=== PATIENT | female | born 1975 | race African-American/Black ===

== ENCOUNTER 2017-04-30 15:57 | Emergency (ER) | payer OTHER ==
[~2017-04-30] VITALS: Ht 149.9 cm; Wt 111.6 kg
[~2017-04-30 15:57] MED LIST: IBUP200T77 PO
[2017-04-30 16:15] VITALS: BP 121/70
[2017-04-30] MEDS ORDERED: DEXA0.5E2 RIGHT EAR (16:41)
[2017-04-30] MEDS ORDERED: CIPR2.5D RIGHT EAR (16:41)
[2017-04-30] MEDS ORDERED: oxyCODONE/APAP 5/325 1 TAB TABLET PO ONE (16:45)
[2017-04-30] MEDS ORDERED: NAPROXEN 250 MG TABLET PO ONE (16:45)
[2017-04-30] MEDS ORDERED: HYDROcodone/APAP 5/325MG 1 TAB TABLET PO ONE (17:15)
--- NOTE | 2017-04-30 17:43 | ED.ADGEN ---
Past Medical History Past Medical History: Cancer, Hypertension, Other Additional Past Medical Histor: myelofibrosis, DDD Past Surgical History: Cholecystectomy, Alcohol Use: Occasionally Drug Use: None Adult General Chief Complaint Chief Complaint: EARACHE/EAR PAIN HPI HPI Patient is a 41 year old woman, history of mild fibrosis, has not received chemotherapy your transplant, who follows with oncology, who presents to the emergency department with a complaint of right ear pain 4 days. Patient denies any fevers, any chills, any jaw or neck pain, any difficulty with swallowing, breathing, sore throat, rhinorrhea, headache, numbness, weakness, tingling, chest pain. She states she has tried [id number] medications without relief. She states the pain is in gradually worsening. In eyes any drainage from the ear, any injuries. Patient did go swimming about 5 days ago, before symptoms started, she states that her sister was going with her at the pool is currently being treated for bilateral otitis externa. No history of diabetes mellitus, no evidence of immunocompromise state. Review of Systems Review of Systems Constitutional: Denies fever or chills. [] Eyes: Denies change in visual acuity. [] HENT: Denies nasal congestion or sore throat. [] Pain in the right ear 4 days. Respiratory: Denies cough or shortness of breath. [] Cardiovascular: Denies chest pain or edema. [] GI: Denies abdominal pain, nausea, vomiting, bloody stools or diarrhea. [] : Denies dysuria. [] Musculoskeletal: Denies back pain or joint pain. [] Integument: Denies rash. [] Neurologic: Denies headache, focal weakness or sensory changes. [] Endocrine: Denies polyuria or polydipsia. [] Lymphatic: Denies swollen glands. [] Psychiatric: Denies depression or anxiety. [] Current Medications Current Medications Current Medications Medications (Trade) Dose Ordered Sig/Ariel Start Time Stop Time Status Last Admin Dose Admin Acetaminophen/ Hydrocodone Bitart (Lortab 5/325) 1 tab 1X ONCE 04/30/17 17:15 04/30/17 17:15 DC 04/30/17 16:59 1 TAB Naproxen (Naprosyn) 250 mg 1X ONCE 04/30/17 16:45 04/30/17 16:46 DC 04/30/17 16:47 250 MG Oxycodone/ Acetaminophen (Percocet 5/325) 1 tab 1X ONCE 04/30/17 16:45 04/30/17 16:46 DC Allergies Allergies Allergies Coded Allergies Type Severity Reaction Last Updated Verified No Known Drug Allergies 09/28/14 No Physical Exam Physical Exam Constitutional: Well developed, well nourished, no acute distress, non-toxic appearance. [] HENT: Normocephalic, atraumatic, bilateral external ears normal, oropharynx moist, no oral exudates, nose normal. Patient with no mastoid tenderness, does have tenderness with motion of the tragus that is mild, examination reveals erythema and swelling of the canal, without evidence of discharge or drainage, with a small amount of cerumen, no evidence of abnormality's of the tympanic membranes is visualized. Patient's left TM and ear canal are normal with a small amount of cerumen noted. Eyes: PERRLA, EOMI, conjunctiva normal, no discharge. [] Neck: Normal range of motion, no tenderness, supple, no stridor. [] Cardiovascular:Heart rate regular rhythm, no murmur, S1, S2, rubs or gallops. [] Lungs & Thorax: Bilateral breath sounds clear to auscultation, no wheezing, rhonchi, rales. Initial crepitus or tenderness. [] Abdomen: Bowel sounds normal, soft, no tenderness, no rebound, rigidity, no guarding, no masses, no pulsatile masses. [] Skin: Warm, dry, no erythema, no rash. [] Neurologic: Alert and oriented X 3, normal motor function, normal sensory function, no focal deficits noted. [] Psychologic: Affect normal, judgement normal, mood normal. [] Current Patient Data Vital Signs Vital Signs Date Time Temp Pulse Resp B/P (MAP) Pulse Ox O2 Delivery O2 Flow Rate FiO2 04/30/17 16:59 18 99 Room Air 04/30/17 16:15 98.1 82 98.1 EKG EKG Not indicated. [] Radiology/Procedures Radiology/Procedures Not indicated. [] Course & Med Decision Making Course & Med Decision Making Pertinent Labs and Imaging studies reviewed. (See chart for details) Patient's examination and history is consistent with otitis externa, no evidence of malignant otitis externa based on patient's history and examination. We will treat with topical ciprofloxacin and dexamethasone, due to cost, patient was prescribed optic medications to be used to the otic route. I did discuss this with pharmacy, prior to writing the prescriptions to confirm proper composition. Discussed use of oral medications for additional discomfort , also discussed concerning symptoms that should prompt return, importance of follow-up with her primary care provider and oncologist. Patient voiced understanding and agreement with plan as stated, discharged home with family in stable condition with plan as above. Dragon Disclaimer Dragon Disclaimer This electronic medical record was generated, in whole or in part, using a voice recognition dictation system. Departure Impression: Primary Impression: Otitis externa of right ear Disposition: HOME, SELF-CARE Condition: IMPROVED Scripts Dexamethasone (DEXAMETHASONE) 0.5 Mg/5 Ml Elixir 3 DROP RIGHT EAR BID for 7 Days, #10 ML Prov: CYNDY CARBAJAL DO 04/30/17 Ciprofloxacin Hcl (CIPROFLOXACIN HCL) 2.5 Ml Drops 3 DROP RIGHT EAR BID for 7 Days, #10 ML Prov: CYNDY CARBAJAL DO 04/30/17 CYNDY CARBAJAL DO Apr 30, 2017 17:42
== END 2017-04-30 17:12 | disposition home or self-care (01) ==
LOC: ER 15:57
DX: H60.91 Unspecified otitis externa, right ear (principal); I10 Essential (primary) hypertension; D75.81 Myelofibrosis; Z90.49 Acquired absence of other specified parts of digestive tract
CPT/HCPCS: 99283

== ENCOUNTER 2017-05-05 17:34 | Emergency (ER) | payer OTHER ==
[~2017-05-05 17:34] MED LIST changes: +CIPR2.5D RIGHT EAR; +DEXA0.5E2 RIGHT EAR
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
[2017-05-05] MEDS ORDERED: HYDROcodone/APAP 5/325MG 1 TAB TABLET PO ONE (19:15)
[2017-05-05] MEDS ORDERED: HYDR-971 PO (19:17)
[2017-05-05 19:40] VITALS: BP 135/88
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
== END 2017-05-05 19:47 | disposition home or self-care (01) ==
LOC: ER 17:34
DX: S83.91XA Sprain of unspecified site of right knee, initial encounter (principal); S93.401A Sprain of unspecified ligament of right ankle, initial encounter; I10 Essential (primary) hypertension; V43.62XA Car passenger injured in collision with other type car in traffic accident, initial encounter; Y93.89 Activity, other specified; Y92.410 Unspecified street and highway as the place of occurrence of the external cause; Y99.8 Other external cause status
CPT/HCPCS: 73562; 73590; 73610; 99284

== ENCOUNTER 2017-12-01 03:20 | Emergency (ER) | payer OTHER ==
[2017-12-01 03:40] LABS: URINE HCG POC HCG NEGATIVE (Negative)
[2017-12-01 03:44] LABS: BILIRUBIN,URINE NEGATIVE (NEG); CLARITY,URINE CLEAR; COLOR,URINE YELLOW; GLUCOSE,URINE NEGATIVE (NEG); NITRITE,URINE NEGATIVE (NEG); PH,URINE 5.5; PROTEIN,URINE NEGATIVE (NEG-TRACE)
[2017-12-01 03:50] LABS: ADD MAN DIFF? NO
[2017-12-01 03:53] LABS: BACTERIA,URINE FEW /HPF (0-FEW); RBC,URINE 0 /HPF (0-2); SQUAMOUS EPITHELIAL CELL,UR MANY /LPF; WBC,URINE OCC /HPF (0-4)
[2017-12-01 04:00] LABS: BASO % 0 % (0-3); EOS % 1 % (0-3); HEMATOCRIT 26.2 % (36.0-47.0); HEMOGLOBIN 7.6 g/dL (12.0-15.5); LYMPH # 2.2 x10^3/uL (1.0-4.8); LYMPH % 45 % (24-48); MEAN CORPUSCULAR HEMOGLOBIN 23 pg (25-35); MEAN CORPUSCULAR HGB CONC 29 g/dL (31-37); MEAN CORPUSCULAR VOLUME 78 fL (79-100); MONO # 0.4 x10^3/uL (0.0-1.1); MONO % 7 % (0-9); NEUT # 2.3 x10^3uL (1.8-7.7); NEUT % 47 % (31-73); PLATELET COUNT 116 x10^3/uL (140-400); RED BLOOD COUNT 3.36 x10^6/uL (3.50-5.40); WHITE BLOOD COUNT 4.9 x10^3/uL (4.0-11.0)
[2017-12-01] MEDS: diphenhydrAMINE 50 MG/ML VIAL IVP (04:01)
[2017-12-01] MEDS: METOCLOPRAMIDE HCL 10 MG/2 ML VIAL. IV (04:01)
[2017-12-01] MEDS: IV NORMAL SALINE 1000ML BAG 1,000 ML IV (04:02)
[2017-12-01] MEDS: DEXAMETHASONE SOD PHOS 4 MG/ML VIAL IV (04:02)
[2017-12-01] MEDS: MAGNESIUM SULFATE 2GM 50 ML IV (04:02)
[2017-12-01 04:11] LABS: TROPONINI < 0.017 ng/mL (0.000-0.055)
[2017-12-01 04:19] LABS: ALBUMIN 3.5 g/dL (3.4-5.0); ALBUMIN/GLOBULIN RATIO 0.7 (1.0-1.7); ALK PHOS 107 U/L (46-116); ALT (SGPT) 33 U/L (14-59); ANION GAP 10 (6-14); AST (SGOT) 20 U/L (15-37); BLOOD UREA NITROGEN 9 mg/dL (7-20); BUN/CREATININE RATIO 10 (6-20); CALCIUM 8.7 mg/dL (8.5-10.1); CARBON DIOXIDE 25 mmol/L (21-32); CHLORIDE 107 mmol/L (98-107); CREATININE 0.9 mg/dL (0.6-1.0); GFR 82.7; GLUCOSE 130 mg/dL (70-99); POTASSIUM 3.8 mmol/L (3.5-5.1); SODIUM 142 mmol/L (136-145); TOTAL BILIRUBIN 0.2 mg/dL (0.2-1.0); TOTAL PROTEIN 8.2 g/dL (6.4-8.2)
[2017-12-01] MEDS ORDERED: CONTRAST GIVEN MC (04:45)
[2017-12-01] MEDS: IOHEXOL 300 MG/ML 100ML VIAL. IV (05:02)
[2017-12-01 05:35] LABS: ANISOCYTOSIS MOD; HYPOCHROMIA SLIGHT; PLT ESTIMATE DECREASED (ADEQUATE); POIKILOCYTOSIS MOD; POLYCHROMASIA SLIGHT
[2017-12-01 05:36] LABS: TEAR DROP CELLS MOD
== END 2017-12-01 06:50 | disposition home or self-care (01) ==
LOC: ER 03:20
DX: R51 Headache (principal); H53.8 Other visual disturbances; R06.02 Shortness of breath; I10 Essential (primary) hypertension
CPT/HCPCS: 36415; 70496; 70498; 71045; 80053; 81001; 81025; 84484; 85025; 93005; 96361; 96365; 96366; 96375; 99285-25; J1100; J1200; J2765; J3475; J7030; Q9967

== ENCOUNTER 2018-01-16 01:50 | Emergency (ER) | payer OTHER ==
[2018-01-16 02:57] LABS: ADD MAN DIFF? NO
[2018-01-16 03:03] LABS: BASO % 0 % (0-3); EOS % 1 % (0-3); HEMOGLOBIN 9.5 g/dL (12.0-15.5); LYMPH # 1.8 x10^3/uL (1.0-4.8); LYMPH % 30 % (24-48); MEAN CORPUSCULAR HEMOGLOBIN 23 pg (25-35); MEAN CORPUSCULAR HGB CONC 31 g/dL (31-37); MEAN CORPUSCULAR VOLUME 76 fL (79-100); MONO # 0.4 x10^3/uL (0.0-1.1); MONO % 6 % (0-9); NEUT # 3.8 x10^3uL (1.8-7.7); NEUT % 63 % (31-73); PLATELET COUNT 177 x10^3/uL (140-400); RED BLOOD COUNT 4.07 x10^6/uL (3.50-5.40); RED CELL DISTRIBUTION WIDTH 18.5 % (11.5-14.5)
[2018-01-16] MEDS: PANTOPRAZOLE IV PUSH 40 MG VIAL. IVP ×2 (03:03)
[2018-01-16] MEDS: ONDANSETRON PF 4 MG/2 ML VIAL. IV ×2 (03:03)
[2018-01-16] MEDS: fentaNYL PF VIAL 100 MCG/2 ML VIAL IV ×2 (03:04)
[2018-01-16] MEDS: IV NORMAL SALINE 1000ML BAG 1,000 ML IV ×2 (03:04)
[2018-01-16] MEDS: HYOSCYAMINE 0.125 MG TAB.RAPDIS PO ×2 (03:05)
[2018-01-16 03:08] LABS: ANION GAP 10 (6-14); BLOOD UREA NITROGEN 11 mg/dL (7-20); BUN/CREATININE RATIO 12 (6-20); CALCIUM 8.6 mg/dL (8.5-10.1); CARBON DIOXIDE 28 mmol/L (21-32); CHLORIDE 105 mmol/L (98-107); CREATININE 0.9 mg/dL (0.6-1.0); GFR 82.7; GLUCOSE 133 mg/dL (70-99); POTASSIUM 4.1 mmol/L (3.5-5.1); SODIUM 143 mmol/L (136-145)
[2018-01-16 03:15] LABS: ALBUMIN 3.5 g/dL (3.4-5.0); ALBUMIN/GLOBULIN RATIO 0.7 (1.0-1.7); ALK PHOS 98 U/L (46-116); ALT (SGPT) 44 U/L (14-59); AST (SGOT) 22 U/L (15-37); LIPASE 63 U/L (73-393); TOTAL BILIRUBIN 0.3 mg/dL (0.2-1.0); TOTAL PROTEIN 8.3 g/dL (6.4-8.2)
[2018-01-16] MEDS ORDERED: CONTRAST GIVEN. MC (03:15)
[2018-01-16] MEDS ORDERED: CONTRAST GIVEN MC (03:15)
[2018-01-16 03:45] LABS: PLT ESTIMATE ADEQUATE (ADEQUATE)
[2018-01-16 03:47] LABS: ANISOCYTOSIS MOD; HYPOCHROMIA MOD; POIKILOCYTOSIS MOD; POLYCHROMASIA SLIGHT
[2018-01-16 03:48] LABS: OVALOCYTES FEW; TEAR DROP CELLS FEW
[2018-01-16 04:33] LABS: BILIRUBIN,URINE NEGATIVE (NEG); CLARITY,URINE CLEAR; COLOR,URINE YELLOW; GLUCOSE,URINE NEGATIVE (NEG); NITRITE,URINE NEGATIVE (NEG); PROTEIN,URINE NEGATIVE (NEG-TRACE)
[2018-01-16 04:33] LABS: URINE HCG POC HCG NEGATIVE (Negative)
[2018-01-16] MEDS: IOHEXOL 300 MG/ML 100ML VIAL. IV ×2 (04:39)
[2018-01-16 04:43] LABS: AMORPHOUS SEDIMENT,UR PRESENT /HPF; BACTERIA,URINE FEW /HPF (0-FEW); RBC,URINE 0 /HPF (0-2); SQUAMOUS EPITHELIAL CELL,UR MOD /LPF; WBC,URINE RARE /HPF (0-4)
== END 2018-01-16 06:36 | disposition home or self-care (01) ==
LOC: ER 01:50
DX: M54.9 Dorsalgia, unspecified (principal); I10 Essential (primary) hypertension; Z90.49 Acquired absence of other specified parts of digestive tract; Z98.890 Other specified postprocedural states
CPT/HCPCS: 36415; 74177; 80053; 81001; 81025; 83690; 85025; 93005; 96374; 96375; 99285-25; C9113; J2405; J3010; J7030; Q9967

== ENCOUNTER 2018-08-20 15:13 | Emergency (ER) | payer OTHER ==
[~2018-08-20] VITALS: Ht 149.9 cm; Wt 136.1 kg
[~2018-08-20 15:13] MED LIST changes: +HYDR-3164 PO; +ONDA4TAB10 SL
--- NOTE | 2018-08-20 15:27 | PHYS DOC ---
Past Medical History Past Medical History: Hypertension Additional Past Medical Histor: bone marrow CA, Past Surgical History: Cholecystectomy, Smoking: Cigarettes Alcohol Use: Occasionally Drug Use: None Adult General Chief Complaint Chief Complaint: CHEST PAIN-NON CARDIAC NATURE HPI HPI Patient is a 42 year old female with past medical history of myelofibrosis, chronic lower extremity swelling, and GERD who presents with 4-5 days of right sided sharp intermittent chest pain. Patient notes that this chest pain is not exertionally related. Patient notes pain is pleuritic in nature but does get better after taking a deep breath. Patient denies any nausea vomiting or diaphoresis. Patient notes that she has had 2 days of nonproductive cough. Pt notes chronic LE edema with RLE greater than LLE for the last 8 months. Pt notes she had a negative DVT LE doppler done in November 2017. Pt notes she has not been taking any medications at home for 6 months due to switching PCP and not being established with new PCP. Review of Systems Review of Systems Constitutional: Denies fever or chills [] Eyes: Denies change in visual acuity, redness, or eye pain [] HENT: Denies nasal congestion or sore throat [] Respiratory: Notes cough and shortness of breath [] Cardiovascular: Notes chest pain denies palpitations [] GI: Denies abdominal pain, nausea, vomiting, or diarrhea [] : Denies dysuria or hematuria [] Musculoskeletal: Denies back pain or joint pain [] Integument: Denies rash or skin lesions [] Neurologic: Denies headache, focal weakness or sensory changes [] Complete systems were reviewed and found to be within normal limits, except as documented in this note. Current Medications Current Medications Current Medications Medications (Trade) Dose Ordered Sig/Ariel Start Time Stop Time Status Last Admin Dose Admin Aspirin (Venu Aspirin) 325 mg 1X ONCE 08/20/18 15:30 08/20/18 15:31 DC 08/20/18 15:20 325 MG Dexamethasone Sodium Phosphate (Decadron) 10 mg 1X ONCE 08/20/18 19:15 08/20/18 19:16 DC 08/20/18 19:38 10 MG Fentanyl Citrate (Fentanyl 2ml Vial) 50 mcg 1X ONCE 08/20/18 18:45 08/20/18 18:46 DC 08/20/18 18:38 50 MCG Info (CONTRAST GIVEN -- Rx MONITORING) 1 each PRN DAILY PRN 08/20/18 16:00 08/20/18 20:06 DC Iohexol (Omnipaque 300 Mg/ml) 75 ml 1X ONCE 08/20/18 15:45 08/20/18 15:46 DC 08/20/18 15:45 75 ML Sodium Chloride 1,000 ml @ 1,000 mls/hr 1X ONCE 08/20/18 15:30 08/20/18 16:29 DC 08/20/18 17:04 1,000 MLS/HR Allergies Allergies Allergies Coded Allergies Type Severity Reaction Last Updated Verified No Known Drug Allergies 09/28/14 No Physical Exam Physical Exam Constitutional: Well developed, well nourished, no acute distress, non-toxic appearance. [] HENT: Normocephalic, atraumatic, oropharynx moist, no oral exudates, nose normal. [] Eyes: PERRL, EOMI, conjunctiva normal, no discharge. [] Neck: Normal range of motion, no tenderness, supple] Cardiovascular: Heart rate regular rhythm, no murmur [] Lungs & Thorax: Bilateral breath sounds clear to auscultation [] Abdomen: Soft, no tenderness Skin: Warm, dry Extremities: No tenderness, ROM intact, BLE edema +2 Neurologic: Alert and oriented X 3, normal motor function, normal sensory function, no focal deficits noted. [] Psychologic: Affect normal, judgement normal, mood normal. [] Current Patient Data Vital Signs Vital Signs Date Time Temp Pulse Resp B/P (MAP) Pulse Ox O2 Delivery O2 Flow Rate FiO2 08/20/18 19:29 86 16 137/67 (90) 96 Room Air 08/20/18 15:25 98.0 98.0 Lab Values Laboratory Tests Test 08/20/18 16:30 08/20/18 19:10 White Blood Count 4.5 x10^3/uL (4.0-11.0) Red Blood Count 3.30 x10^6/uL (3.50-5.40) L Hemoglobin 7.7 g/dL (12.0-15.5) L Hematocrit 25.3 % (36.0-47.0) L Mean Corpuscular Volume 77 fL (79-100) L Mean Corpuscular Hemoglobin 23 pg (25-35) L Mean Corpuscular Hemoglobin Concent 30 g/dL (31-37) L Red Cell Distribution Width 20.2 % (11.5-14.5) H Platelet Count 126 x10^3/uL (140-400) L Neutrophils (%) (Auto) 57 % (31-73) Lymphocytes (%) (Auto) 36 % (24-48) Monocytes (%) (Auto) 6 % (0-9) Eosinophils (%) (Auto) 1 % (0-3) Basophils (%) (Auto) 1 % (0-3) Neutrophils # (Auto) 2.6 x10^3uL (1.8-7.7) Lymphocytes # (Auto) 1.6 x10^3/uL (1.0-4.8) Monocytes # (Auto) 0.3 x10^3/uL (0.0-1.1) Eosinophils # (Auto) 0.0 x10^3/uL (0.0-0.7) Basophils # (Auto) 0.0 x10^3/uL (0.0-0.2) Segmented Neutrophils % 48 % (35-66) Band Neutrophils % 4 % (0-9) Lymphocytes % 41 % (24-48) Monocytes % 6 % (0-10) Metamyelocytes % 1 % (0-0) H Nucleated Red Blood Cells 3 Platelet Estimate Decreased (ADEQUATE) Polychromasia Slight Hypochromasia Mod Anisocytosis Mod Microcytosis Mod Ovalocytes Few Schistocytes Occ Prothrombin Time 13.3 SEC (11.7-14.0) Prothrombin Time INR 1.1 (0.8-1.1) Sodium Level 142 mmol/L (136-145) Potassium Level 4.1 mmol/L (3.5-5.1) Chloride Level 105 mmol/L (98-107) Carbon Dioxide Level 28 mmol/L (21-32) Anion Gap 9 (6-14) Blood Urea Nitrogen 8 mg/dL (7-20) Creatinine 0.9 mg/dL (0.6-1.0) Estimated GFR (Cockcroft-Gault) 82.7 BUN/Creatinine Ratio 9 (6-20) Glucose Level 103 mg/dL (70-99) H Calcium Level 8.3 mg/dL (8.5-10.1) L Magnesium Level 2.1 mg/dL (1.8-2.4) Total Bilirubin 0.2 mg/dL (0.2-1.0) Aspartate Amino Transferase (AST) 21 U/L (15-37) Alanine Aminotransferase (ALT) 37 U/L (14-59) Alkaline Phosphatase 121 U/L (46-116) H Creatine Kinase 177 U/L (26-192) Creatine Kinase MB (Mass) 0.8 ng/mL (0.0-3.6) Creatine Kinase MB Relative Index 0.5 % (0-4) Troponin I Quantitative < 0.017 ng/mL (0.000-0.055) < 0.017 ng/mL (0.000-0.055) VN-Lfl-P-Type Natriuretic Peptide 25 pg/mL (0-124) Total Protein 7.8 g/dL (6.4-8.2) Albumin 3.1 g/dL (3.4-5.0) L Albumin/Globulin Ratio 0.7 (1.0-1.7) L Lipase 72 U/L (73-393) L Laboratory Tests 08/20/18 16:30 Laboratory Tests 08/20/18 16:30 EKG EKG HR 85, MI 138. QTc 451. No STEMI. Normal sinus rhythm. Leftward axis. [] Radiology/Procedures Radiology/Procedures PROCEDURE: VENOUS LOWER EXT BILATERAL Bilateral lower extremity venous duplex study 08/20/2018 3:59 PM Clinical History: Bilateral lower extremity edema. Comparison: None available Technique: Using a combination of real time ultrasound imaging and color-flow and pulse Doppler imaging techniques along with graded compression and augmentation, duplex evaluation of the deep venous system of the both lower extremities was performed. Multiple images were obtained. Findings: Exam mildly limited by body habitus. There is no sonographic evidence of deep venous thrombosis involving the visualized deep venous structures of either lower extremity. Impression: No evidence of deep venous thrombosis involving either lower extremity Electronically signed by: Wily Suarez MD (08/20/2018 4:27 PM) [email or web address] PROCEDURE: CT ANGIOGRAPHY CHEST CT chest with contrast dated 08/20/2018. No comparison available. Clinical data indication: Pleuritic chest pain. Possible pulmonary embolus. TECHNIQUE: Contiguous axial imaging of the chest performed following the intravenous administration of 75 cc Omnipaque 300. Study performed as dedicated PE protocol with thin cut coronal MIPS 3-D reconstruction. One or more of the following individualized dose reduction techniques were utilized for this examination: 1. Automated exposure control 2. Adjustment of the mA and/or kV according to patient size 3. Use of iterative reconstruction technique FINDINGS: Contrast bolus is adequate. No evidence of central, lobar or segmental pulmonary embolus. Subsegmental branches are not well evaluated based on technique. Heart size is mildly enlarged. No pericardial effusion. No mediastinal, hilar or axillary lymphadenopathy. Thyroid gland is unremarkable. Central airways are patent. Mild patchy and linear opacity at both lung bases, likely scar or atelectasis. Mild bilateral pleural thickening. No consolidation or pleural effusion. No pneumothorax. Images of the upper abdomen show mild hepatosplenomegaly. There is diffuse low-density of the liver suggesting fatty infiltration. Bone windows show no acute findings. Mild multilevel spondylosis. IMPRESSION: 1. No evidence of central, lobar or segmental pulmonary embolus. 2. Patchy and linear opacities at both lung bases, likely scar or atelectasis. There is mild bilateral pleural thickening. 3. Borderline cardiomegaly. 4. Hepatosplenomegaly and mild hepatic steatosis. Electronically signed by: Weston Reddy MD (08/20/2018 6:20 PM) [facility] Course & Med Decision Making Course & Med Decision Making 42 yo female presenting with 5 days of R sided nonexertional sharp pleuritic chest pain. EKG unremarkable. Troponin x2 negative. CT-angio chest negative for PE, no evidence of pneumonia. Bilateral LE doppler US negative. Pt reports relief of pain with fentanyl. Labs collected, evaluated, and posted to chart. Chronic anemia and thrombocytopenia noted. HEART score low risk: 2 points (1 point for moderately suspicious story, 1 point for 2 risk factors- obesity, smoking) Pt given 10mg IV decadron for possible pleurisy. Patient stable for discharge with outpatient follow-up with PCP. Discussed findings and plan with patient, who acknowledges understanding and agreement. Dragon Disclaimer Dragon Disclaimer This electronic medical record was generated, in whole or in part, using a voice recognition dictation system. Departure Departure Impression: Primary Impression: Chest pain Additional Impressions: Pleurisy Chronic anemia Disposition: HOME, SELF-CARE Condition: STABLE Referrals: NO PCP (PCP) Patient Instructions: Chest Pain (Nonspecific), [id number], Pleurisy, Easy-to -Read Scripts Prednisone (PREDNISONE) 20 Mg Tablet 2 TAB PO DAILY, #8 TAB Start this prescription tomorrow 08/21/18 Prov: WESTON GODWIN DO 08/20/18 Problem Qualifiers Primary Impression: Chest pain Chest pain type: unspecified Qualified Codes: R07.9 - Chest pain, unspecified WESTON GODWIN DO Aug 20, 2018 15:27
[2018-08-20] MEDS ORDERED: IV NORMAL SALINE 1000ML BAG 1,000 ML IV ONE (15:30)
[2018-08-20] MEDS ORDERED: ASPIRIN 325 MG TABLET PO ONE (15:30)
[2018-08-20] MEDS ORDERED: IOHEXOL 300 MG/ML 100ML VIAL. IV ONE (15:45)
[2018-08-20] MEDS ORDERED: CONTRAST GIVEN. MC PRN (16:00)
--- NOTE | 2018-08-20 16:30 | RAD ---
Bilateral lower extremity venous duplex study 08/20/2018 3:59 PM Clinical History: Bilateral lower extremity edema. Comparison: None available Technique: Using a combination of real time ultrasound imaging and color-flow and pulse Doppler imaging techniques along with graded compression and augmentation, duplex evaluation of the deep venous system of the both lower extremities was performed. Multiple images were obtained. Findings: Exam mildly limited by body habitus. There is no sonographic evidence of deep venous thrombosis involving the visualized deep venous structures of either lower extremity. Impression: No evidence of deep venous thrombosis involving either lower extremity Electronically signed by: Wily Suarez MD (08/20/2018 4:27 PM) [id number]
[2018-08-20 16:43] LABS: BASO % 1 % (0-3); EOS % 1 % (0-3); HEMATOCRIT 25.3 % (36.0-47.0); HEMOGLOBIN 7.7 g/dL (12.0-15.5); LYMPH # 1.6 x10^3/uL (1.0-4.8); LYMPH % 36 % (24-48); MEAN CORPUSCULAR HEMOGLOBIN 23 pg (25-35); MEAN CORPUSCULAR HGB CONC 30 g/dL (31-37); MEAN CORPUSCULAR VOLUME 77 fL (79-100); MONO # 0.3 x10^3/uL (0.0-1.1); MONO % 6 % (0-9); NEUT # 2.6 x10^3uL (1.8-7.7); NEUT % 57 % (31-73); PLATELET COUNT 126 x10^3/uL (140-400); RED CELL DISTRIBUTION WIDTH 20.2 % (11.5-14.5); WHITE BLOOD COUNT 4.5 x10^3/uL (4.0-11.0)
[2018-08-20 16:51] LABS: PROTHROMBIN TIME PATIENT 13.3 SEC (11.7-14.0)
[2018-08-20 16:59] LABS: CALCIUM 8.3 mg/dL (8.5-10.1); CREATININE 0.9 mg/dL (0.6-1.0); GFR 82.7; POTASSIUM 4.1 mmol/L (3.5-5.1)
[2018-08-20 17:04] LABS: ALBUMIN 3.1 g/dL (3.4-5.0); ALBUMIN/GLOBULIN RATIO 0.7 (1.0-1.7); MAGNESIUM 2.1 mg/dL (1.8-2.4); TOTAL BILIRUBIN 0.2 mg/dL (0.2-1.0); TOTAL PROTEIN 7.8 g/dL (6.4-8.2)
[2018-08-20 17:09] LABS: % BANDS 4 % (0-9); % LYMPHS 41 % (24-48); % METAS 1 % (0-0); % MONOS 6 % (0-10); % SEGS 48 % (35-66); NUCLEATED RBC 3
[2018-08-20 17:11] LABS: HYPOCHROMIA MOD; MICROCYTOSIS MOD; OVALOCYTES FEW; PLT ESTIMATE DECREASED (ADEQUATE); POLYCHROMASIA SLIGHT; SCHISTOCYTES OCC
[2018-08-20 17:12] LABS: ANISOCYTOSIS MOD
--- NOTE | 2018-08-20 17:15 | EKG ---
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
--- NOTE | 2018-08-20 18:24 | RAD ---
CT chest with contrast dated 08/20/2018. No comparison available. Clinical data indication: Pleuritic chest pain. Possible pulmonary embolus. TECHNIQUE: Contiguous axial imaging of the chest performed following the intravenous administration of 75 cc Omnipaque 300. Study performed as dedicated PE protocol with thin cut coronal MIPS 3-D reconstruction. One or more of the following individualized dose reduction techniques were utilized for this examination: 1. Automated exposure control 2. Adjustment of the mA and/or kV according to patient size 3. Use of iterative reconstruction technique FINDINGS: Contrast bolus is adequate. No evidence of central, lobar or segmental pulmonary embolus. Subsegmental branches are not well evaluated based on technique. Heart size is mildly enlarged. No pericardial effusion. No mediastinal, hilar or axillary lymphadenopathy. Thyroid gland is unremarkable. Central airways are patent. Mild patchy and linear opacity at both lung bases, likely scar or atelectasis. Mild bilateral pleural thickening. No consolidation or pleural effusion. No pneumothorax. Images of the upper abdomen show mild hepatosplenomegaly. There is diffuse low-density of the liver suggesting fatty infiltration. Bone windows show no acute findings. Mild multilevel spondylosis. IMPRESSION: 1. No evidence of central, lobar or segmental pulmonary embolus. 2. Patchy and linear opacities at both lung bases, likely scar or atelectasis. There is mild bilateral pleural thickening. 3. Borderline cardiomegaly. 4. Hepatosplenomegaly and mild hepatic steatosis. Electronically signed by: Weston Reddy MD (08/20/2018 6:20 PM) [facility]
[2018-08-20] MEDS ORDERED: fentaNYL PF VIAL 100 MCG/2 ML VIAL IV ONE (18:45)
[2018-08-20] MEDS ORDERED: DEXAMETHASONE SOD PHOS 20 MG/5 ML VIAL. IV ONE (19:15)
[2018-08-20 19:29] VITALS: BP 137/67
[2018-08-20] MEDS ORDERED: PRED20TA PO (19:45)
== END 2018-08-20 19:50 | disposition home or self-care (01) ==
LOC: ER 15:13
DX: R09.1 Pleurisy (principal); D64.89 Other specified anemias; D69.6 Thrombocytopenia, unspecified; R16.2 Hepatomegaly with splenomegaly, not elsewhere classified; K76.0 Fatty (change of) liver, not elsewhere classified; I51.7 Cardiomegaly; M47.9 Spondylosis, unspecified; R60.0 Localized edema; I10 Essential (primary) hypertension; F17.210 Nicotine dependence, cigarettes, uncomplicated
CPT/HCPCS: 36415; 71275; 80053; 82553; 83690; 83735; 83880; 84484; 85007; 85025; 85610; 93005; 93970; 96374; 96375; 99284; J1100; J3010; J7030; Q9967

== ENCOUNTER 2019-04-25 10:29 | Emergency (ER) | payer OTHER ==
[~2019-04-25] VITALS: Ht 149.9 cm; Wt 119.3 kg
[~2019-04-25 10:29] MED LIST changes: +PRED20TA PO
--- NOTE | 2019-04-25 10:59 | PHYS DOC ---
Past Medical History Past Medical History: Arthritis, Hypertension Additional Past Medical Histor: bone marrow CA, "muscle spasms" Past Surgical History: Cholecystectomy, Additional Past Surgical Histo: spinal tap,CHEMO COMPLETED X6 YEARS AGO Alcohol Use: Occasionally Drug Use: None Adult General Chief Complaint Chief Complaint: ABDOMINAL PAIN [facility] HPI Patient is a 43 year old female with a history of leukemia treated 6 years ago, chronic anemia who presents to the ED today with multiple complaints including left-sided abdominal pain, vaginal discharge, and an episode of dizziness, symptoms began yesterday. Patient denies any nausea, vomiting, diarrhea. Denies any chance she is . Denies any concerns for STDs. She states she believes she could have a UTI. Denies anything specific exacerbating or relieving her symptoms. Review of Systems Review of Systems Constitutional: Denies fever or chills [] Eyes: Denies change in visual acuity, redness, or eye pain [] HENT: Denies nasal congestion or sore throat [] Respiratory: Denies cough or shortness of breath [] Cardiovascular: No additional information not addressed in HPI [] GI: Reports left-sided abdominal pain, vaginal discharge, denies nausea, vomiting, bloody stools or diarrhea [] : Denies dysuria or hematuria [] Musculoskeletal: Denies back pain or joint pain [] Integument: Denies rash or skin lesions [] Neurologic: Reports dizziness. Denies headache, focal weakness or sensory changes [] All other systems were reviewed and found to be within normal limits, except as documented in this note. Current Medications Current Medications Current Medications Medications (Trade) Dose Ordered Sig/Ariel Start Time Stop Time Status Last Admin Dose Admin Famotidine (Pepcid Vial) 20 mg 1X ONCE 04/25/19 11:00 04/25/19 11:01 DC 04/25/19 11:23 20 MG Info (CONTRAST GIVEN -- Rx MONITORING) 1 each PRN DAILY PRN 04/25/19 11:45 04/27/19 11:44 Iohexol (Omnipaque 300 Mg/ml) 75 ml 1X ONCE 04/25/19 11:45 04/25/19 11:46 DC 04/25/19 12:38 75 ML Morphine Sulfate (Morphine Sulfate) 4 mg 1X ONCE 04/25/19 11:00 04/25/19 11:01 DC 04/25/19 11:23 4 MG Sodium Chloride 1,000 ml @ 1,000 mls/hr 1X ONCE 04/25/19 11:00 04/25/19 11:59 DC 04/25/19 11:23 1,000 MLS/HR Allergies Allergies Allergies Coded Allergies Type Severity Reaction Last Updated Verified No Known Drug Allergies 09/28/14 No Physical Exam Physical Exam Constitutional: Well developed, well nourished, no acute distress, non-toxic appearance. [] HENT: Normocephalic, atraumatic, bilateral external ears normal, oropharynx moist, no oral exudates, nose normal. [] Eyes: PERRLA, EOMI, conjunctiva normal, no discharge. [] Neck: Normal range of motion, no tenderness, supple, no stridor. [] Cardiovascular:Heart rate regular rhythm, no murmur [] Lungs & Thorax: Bilateral breath sounds clear to auscultation [] Abdomen: Bowel sounds normal, soft, no tenderness, no masses, no pulsatile masses. [] Pelvic exam External pelvic appears normal, cervix is not visualized due to body habitus, trace amount of white discharge in the vaginal no adnexal tenderness. No CMT. Skin: Warm, dry, no erythema, no rash. [] Back: No tenderness, no CVA tenderness. [] Extremities: No tenderness, no cyanosis, no clubbing, ROM intact, no edema. [] Neurologic: Alert and oriented X 3, normal motor function, normal sensory function, no focal deficits noted. [] Psychologic: Affect normal, judgement normal, mood normal. [] Current Patient Data Vital Signs Vital Signs Date Time Temp Pulse Resp B/P (MAP) Pulse Ox O2 Delivery O2 Flow Rate FiO2 04/25/19 11:41 86 149/68 (95) 98 Room Air 04/25/19 10:47 98.8 20 98.8 Lab Values Laboratory Tests Test 04/25/19 11:10 04/25/19 12:00 04/25/19 12:12 White Blood Count 4.6 x10^3/uL (4.0-11.0) Red Blood Count 3.08 x10^6/uL (3.50-5.40) L Hemoglobin 7.1 g/dL (12.0-15.5) L Hematocrit 23.3 % (36.0-47.0) L Mean Corpuscular Volume 76 fL (79-100) L Mean Corpuscular Hemoglobin 23 pg (25-35) L Mean Corpuscular Hemoglobin Concent 30 g/dL (31-37) L Red Cell Distribution Width 21.1 % (11.5-14.5) H Platelet Count 112 x10^3/uL (140-400) L Neutrophils (%) (Auto) 55 % (31-73) Lymphocytes (%) (Auto) 38 % (24-48) Monocytes (%) (Auto) 6 % (0-9) Eosinophils (%) (Auto) 1 % (0-3) Basophils (%) (Auto) 0 % (0-3) Neutrophils # (Auto) 2.5 x10^3/uL (1.8-7.7) Lymphocytes # (Auto) 1.8 x10^3/uL (1.0-4.8) Monocytes # (Auto) 0.3 x10^3/uL (0.0-1.1) Eosinophils # (Auto) 0.0 x10^3/uL (0.0-0.7) Basophils # (Auto) 0.0 x10^3/uL (0.0-0.2) Platelet Estimate Decreased (ADEQUATE) Polychromasia Present Hypochromasia Mod Poikilocytosis Slight Basophilic Stippling Present Anisocytosis Mod Tear Drop Cells Present Sodium Level 140 mmol/L (136-145) Potassium Level 3.9 mmol/L (3.5-5.1) Chloride Level 105 mmol/L (98-107) Carbon Dioxide Level 27 mmol/L (21-32) Anion Gap 8 (6-14) Blood Urea Nitrogen 6 mg/dL (7-20) L Creatinine 0.9 mg/dL (0.6-1.0) Estimated GFR (Cockcroft-Gault) 82.3 BUN/Creatinine Ratio 7 (6-20) Glucose Level 111 mg/dL (70-99) H Calcium Level 8.2 mg/dL (8.5-10.1) L Total Bilirubin 0.5 mg/dL (0.2-1.0) Aspartate Amino Transferase (AST) 16 U/L (15-37) Alanine Aminotransferase (ALT) 27 U/L (14-59) Alkaline Phosphatase 95 U/L (46-116) Creatine Kinase 74 U/L (26-192) Total Protein 8.1 g/dL (6.4-8.2) Albumin 3.0 g/dL (3.4-5.0) L Albumin/Globulin Ratio 0.6 (1.0-1.7) L Lipase 45 U/L (73-393) L Ethyl Alcohol Level < 10 mg/dL (0-10) Urine Collection Type Unknown Urine Color Yellow Urine Clarity Clear Urine pH 5.5 Urine Specific [place] 1.020 Urine Protein Negative mg/dL (NEG-TRACE) Urine Glucose (UA) Negative mg/dL (NEG) Urine Ketones (Stick) Negative mg/dL (NEG) Urine Blood Negative (NEG) Urine Nitrite Negative (NEG) Urine Bilirubin Negative (NEG) Urine Urobilinogen Dipstick 1.0 mg/dL (0.2 mg/dL) Urine Leukocyte Esterase Negative (NEG) Urine RBC 0 /HPF (0-2) Urine WBC 0 /HPF (0-4) Urine Squamous Epithelial Cells Mod /LPF Urine Bacteria Mod /HPF (0-FEW) Urine Mucus Mod /LPF Urine Opiates Screen Pos (NEG) Urine Methadone Screen Neg (NEG) Urine Barbiturates Neg (NEG) Urine Phencyclidine Screen Neg (NEG) Urine Amphetamine/Methamphetamine Neg (NEG) Urine Benzodiazepines Screen Pos (NEG) Urine Cocaine Screen Neg (NEG) Urine Cannabinoids Screen Neg (NEG) Urine Ethyl Alcohol Neg (NEG) POC Urine HCG, Qualitative Hcg negative (Negative) Laboratory Tests 04/25/19 11:10 Laboratory Tests 04/25/19 11:10 Microbiology 04/25/19 Wet Prep - Final, Complete Laboratory Tests Test 04/25/19 11:10 04/25/19 12:00 04/25/19 12:12 White Blood Count 4.6 x10^3/uL (4.0-11.0) Red Blood Count 3.08 x10^6/uL (3.50-5.40) L Hemoglobin 7.1 g/dL (12.0-15.5) L Hematocrit 23.3 % (36.0-47.0) L Mean Corpuscular Volume 76 fL (79-100) L Mean Corpuscular Hemoglobin 23 pg (25-35) L Mean Corpuscular Hemoglobin Concent 30 g/dL (31-37) L Red Cell Distribution Width 21.1 % (11.5-14.5) H Platelet Count 112 x10^3/uL (140-400) L Neutrophils (%) (Auto) 55 % (31-73) Lymphocytes (%) (Auto) 38 % (24-48) Monocytes (%) (Auto) 6 % (0-9) Eosinophils (%) (Auto) 1 % (0-3) Basophils (%) (Auto) 0 % (0-3) Neutrophils # (Auto) 2.5 x10^3/uL (1.8-7.7) Lymphocytes # (Auto) 1.8 x10^3/uL (1.0-4.8) Monocytes # (Auto) 0.3 x10^3/uL (0.0-1.1) Eosinophils # (Auto) 0.0 x10^3/uL (0.0-0.7) Basophils # (Auto) 0.0 x10^3/uL (0.0-0.2) Platelet Estimate Decreased (ADEQUATE) Polychromasia Present Hypochromasia Mod Poikilocytosis Slight Basophilic Stippling Present Anisocytosis Mod Tear Drop Cells Present Sodium Level 140 mmol/L (136-145) Potassium Level 3.9 mmol/L (3.5-5.1) Chloride Level 105 mmol/L (98-107) Carbon Dioxide Level 27 mmol/L (21-32) Anion Gap 8 (6-14) Blood Urea Nitrogen 6 mg/dL (7-20) L Creatinine 0.9 mg/dL (0.6-1.0) Estimated GFR (Cockcroft-Gault) 82.3 BUN/Creatinine Ratio 7 (6-20) Glucose Level 111 mg/dL (70-99) H Calcium Level 8.2 mg/dL (8.5-10.1) L Total Bilirubin 0.5 mg/dL (0.2-1.0) Aspartate Amino Transferase (AST) 16 U/L (15-37) Alanine Aminotransferase (ALT) 27 U/L (14-59) Alkaline Phosphatase 95 U/L (46-116) Creatine Kinase 74 U/L (26-192) Total Protein 8.1 g/dL (6.4-8.2) Albumin 3.0 g/dL (3.4-5.0) L Albumin/Globulin Ratio 0.6 (1.0-1.7) L Lipase 45 U/L (73-393) L Ethyl Alcohol Level < 10 mg/dL (0-10) Urine Collection Type Unknown Urine Color Yellow Urine Clarity Clear Urine pH 5.5 Urine Specific [place] 1.020 Urine Protein Negative mg/dL (NEG-TRACE) Urine Glucose (UA) Negative mg/dL (NEG) Urine Ketones (Stick) Negative mg/dL (NEG) Urine Blood Negative (NEG) Urine Nitrite Negative (NEG) Urine Bilirubin Negative (NEG) Urine Urobilinogen Dipstick 1.0 mg/dL (0.2 mg/dL) Urine Leukocyte Esterase Negative (NEG) Urine RBC 0 /HPF (0-2) Urine WBC 0 /HPF (0-4) Urine Squamous Epithelial Cells Mod /LPF Urine Bacteria Mod /HPF (0-FEW) Urine Mucus Mod /LPF Urine Opiates Screen Pos (NEG) Urine Methadone Screen Neg (NEG) Urine Barbiturates Neg (NEG) Urine Phencyclidine Screen Neg (NEG) Urine Amphetamine/Methamphetamine Neg (NEG) Urine Benzodiazepines Screen Pos (NEG) Urine Cocaine Screen Neg (NEG) Urine Cannabinoids Screen Neg (NEG) Urine Ethyl Alcohol Neg (NEG) POC Urine HCG, Qualitative Hcg negative (Negative) Laboratory Tests 04/25/19 11:10 Laboratory Tests 04/25/19 11:10 Microbiology 04/25/19 Wet Prep - Final, Complete EKG EKG [] Radiology/Procedures Radiology/Procedures []PROCEDURE: CT ABD PELV W/ IV CONTRST ONLY EXAM: Abdomen and pelvis CT with intravenous contrast. HISTORY: Left-sided pain. TECHNIQUE: Computed tomographic images of the abdomen and pelvis were obtained following the administration of 75 cc Omnipaque 300 intravenous contrast. Multiplanar reformatting was performed. *One or more of the following individualized dose reduction techniques were utilized for this examination: 1. Automated exposure control. 2. Adjustment of the mA and/or kV according to patient size. 3. Use of iterative reconstruction technique. COMPARISON: 01/16/2018. FINDINGS: Evaluation of the lower thorax demonstrates posterior dependent and basilar atelectasis. There is no infiltrate or pleural effusion. The heart is mildly enlarged or upper normal in size. There is trace pericardial fluid. There is hepatomegaly and hepatic steatosis. No focal hepatic lesion is seen. The gallbladder is surgically absent. The spleen is enlarged, measuring 15.7 cm transaxially. There is common bile duct dilatation likely due to reservoir effect status post cholecystectomy. The pancreas, stomach and adrenal glands are unremarkable. There is no appendicitis. There is colonic diverticulosis. There is minimal fatty stranding adjacent to the descending-sigmoid colon junction, not clearly within limits to suggest acute diverticulitis. There is no bowel obstruction. There is a prominent uterus without focal mass. There is a right ovarian follicle/follicular cyst measuring 2.1 cm. There is a small amount of pelvic free fluid. There is a tiny fat-containing supraumbilical hernia. The bladder is unremarkable. No pathologically enlarged lymph node is seen. There is no suspicious osseous lesion. There is a transitional lumbosacral segment. IMPRESSION: 1. Colonic diverticulosis. There is mild fatty stranding adjacent to the descending sigmoid junction, not clearly within limits to suggest acute diverticulitis. This may be due to the sequela of prior diverticulitis. 2. Hepatomegaly and hepatic steatosis. 3. Splenomegaly. 4. 2.1 cm right ovarian follicular cyst. Electronically signed by: Kelsy Farnsworth MD (04/25/2019 12:57 PM) [place] [id number] DICTATED and SIGNED BY: KELSY FARNSWORTH MD DATE: 04/25/19 1257 Course & Med Decision Making Course & Med Decision Making Pertinent Labs and Imaging studies reviewed. (See chart for details) This is a 43-year-old female patient presenting to the ED today with multiple complaints including left-sided abdominal pain, vaginal discharge, concern for UTI and and episode of dizziness, symptoms began yesterday. Negative urine hCG, urine analysis is negative for infection. Wet prep noted for BV, discharge and Flagyl. CBC with a normal WBC, hemoglobin 7.1 hematocrit 23.3 patient states her hemoglobin runs very low and this began during her treatment leukemia-I recommended she starts taking [id number] iron. CT of the abdomen and pelvic was negative for any acute findings, noted for right ovarian cyst,Colonic diverticulosis, Splenomegaly. 4. 2.1 cm right ovarian follicular cyst. D/c to home. F/u with her PCP next week. Dragon Disclaimer Dragon Disclaimer This electronic medical record was generated, in whole or in part, using a voice recognition dictation system. Departure Departure Impression: Primary Impression: Abdominal pain Additional Impressions: Chronic anemia Diverticulosis Disposition: HOME, SELF-CARE Condition: STABLE Referrals: NO PCP (PCP) Please follow up with your own OBGY, primary care doctor in the course of next week Patient Instructions: Abdominal Pain (Nonspecific), Anemia, Nonspecific-Brief, Diverticulosis Additional Instructions: You were evaluated in the emergency room, your hemoglobin is running low cu rrently at 7.1 with hematocrit of 23.3, we highly encourage you to start taking iron tablets if you are not taking any. Please follow-up with an [facility] for the right ovarian cyst we as well as concerns for tubal ligation. Scripts Metronidazole (FLAGYL) 500 Mg Tablet 1 TAB PO BID, #14 TAB Prov: OBEY JUAREZ APRN 04/25/19 Ferrous Fumarate (FERROUS FUMARATE) 324 Mg Tablet 324 MG PO DAILY, #30 TAB Prov: OBEY JUAREZ APRN 04/25/19 Problem Qualifiers Primary Impression: Abdominal pain Abdominal location: left lower quadrant Qualified Codes: R10.32 - Left lower quadrant pain OBEY JUAREZ APRN Apr 25, 2019 10:59
[2019-04-25] MEDS ORDERED: MORPHINE SULFATE 4 MG/ML VIAL. IV ONE (11:00)
[2019-04-25] MEDS ORDERED: FAMOTIDINE 20 MG/2 ML VIAL IVP ONE (11:00)
[2019-04-25] MEDS ORDERED: IV NORMAL SALINE 1000ML BAG 1,000 ML IV ONE (11:00)
[2019-04-25 11:19] LABS: BASO % 0 % (0-3); EOS % 1 % (0-3); HEMATOCRIT 23.3 % (36.0-47.0); HEMOGLOBIN 7.1 g/dL (12.0-15.5); LYMPH # 1.8 x10^3/uL (1.0-4.8); LYMPH % 38 % (24-48); MEAN CORPUSCULAR HEMOGLOBIN 23 pg (25-35); MEAN CORPUSCULAR HGB CONC 30 g/dL (31-37); MEAN CORPUSCULAR VOLUME 76 fL (79-100); MONO # 0.3 x10^3/uL (0.0-1.1); MONO % 6 % (0-9); NEUT # 2.5 x10^3/uL (1.8-7.7); NEUT % 55 % (31-73); PLATELET COUNT 112 x10^3/uL (140-400); RED BLOOD COUNT 3.08 x10^6/uL (3.50-5.40); RED CELL DISTRIBUTION WIDTH 21.1 % (11.5-14.5); WHITE BLOOD COUNT 4.6 x10^3/uL (4.0-11.0)
[2019-04-25 11:28] LABS: CALCIUM 8.2 mg/dL (8.5-10.1); CREATININE 0.9 mg/dL (0.6-1.0); GFR 82.3; POTASSIUM 3.9 mmol/L (3.5-5.1)
[2019-04-25 11:34] LABS: ALBUMIN/GLOBULIN RATIO 0.6 (1.0-1.7); TOTAL BILIRUBIN 0.5 mg/dL (0.2-1.0); TOTAL PROTEIN 8.1 g/dL (6.4-8.2)
[2019-04-25 11:41] VITALS: BP 149/68
[2019-04-25] MEDS ORDERED: IOHEXOL 300 MG/ML 100ML VIAL. IV ONE (11:45)
[2019-04-25] MEDS ORDERED: CONTRAST GIVEN. MC PRN (11:45)
[2019-04-25 11:51] LABS: ANISOCYTOSIS MOD; HYPOCHROMIA MOD; PLT ESTIMATE DECREASED (ADEQUATE); POIKILOCYTOSIS SLIGHT; POLYCHROMASIA PRESENT; TEAR DROP CELLS PRESENT
[2019-04-25 12:20] LABS: BARBITURATES NEG (NEG); BENZODIAZEPINES POS (NEG); CANNABINOIDS NEG (NEG); COCAINE NEG (NEG); METHADONE NEG (NEG); OPIATES POS (NEG); PHENCYCLIDINE NEG (NEG)
[2019-04-25 12:21] LABS: AMPHETAMINE/METHAMPHETAMINE NEG (NEG); BILIRUBIN,URINE NEGATIVE (NEG); CLARITY,URINE CLEAR; COLOR,URINE YELLOW; NITRITE,URINE NEGATIVE (NEG); PH,URINE 5.5; PROTEIN,URINE NEGATIVE (NEG-TRACE)
[2019-04-25 12:39] LABS: BACTERIA,URINE MOD /HPF (0-FEW); RBC,URINE 0 /HPF (0-2); SQUAMOUS EPITHELIAL CELL,UR MOD /LPF; WBC,URINE 0 /HPF (0-4)
--- NOTE | 2019-04-25 13:00 | RAD ---
EXAM: Abdomen and pelvis CT with intravenous contrast. HISTORY: Left-sided pain. TECHNIQUE: Computed tomographic images of the abdomen and pelvis were obtained following the administration of 75 cc Omnipaque 300 intravenous contrast. Multiplanar reformatting was performed. *One or more of the following individualized dose reduction techniques were utilized for this examination: 1. Automated exposure control. 2. Adjustment of the mA and/or kV according to patient size. 3. Use of iterative reconstruction technique. COMPARISON: 01/16/2018. FINDINGS: Evaluation of the lower thorax demonstrates posterior dependent and basilar atelectasis. There is no infiltrate or pleural effusion. The heart is mildly enlarged or upper normal in size. There is trace pericardial fluid. There is hepatomegaly and hepatic steatosis. No focal hepatic lesion is seen. The gallbladder is surgically absent. The spleen is enlarged, measuring 15.7 cm transaxially. There is common bile duct dilatation likely due to reservoir effect status post cholecystectomy. The pancreas, stomach and adrenal glands are unremarkable. There is no appendicitis. There is colonic diverticulosis. There is minimal fatty stranding adjacent to the descending-sigmoid colon junction, not clearly within limits to suggest acute diverticulitis. There is no bowel obstruction. There is a prominent uterus without focal mass. There is a right ovarian follicle/follicular cyst measuring 2.1 cm. There is a small amount of pelvic free fluid. There is a tiny fat-containing supraumbilical hernia. The bladder is unremarkable. No pathologically enlarged lymph node is seen. There is no suspicious osseous lesion. There is a transitional lumbosacral segment. IMPRESSION: 1. Colonic diverticulosis. There is mild fatty stranding adjacent to the descending sigmoid junction, not clearly within limits to suggest acute diverticulitis. This may be due to the sequela of prior diverticulitis. 2. Hepatomegaly and hepatic steatosis. 3. Splenomegaly. 4. 2.1 cm right ovarian follicular cyst. Electronically signed by: Kelsy Farnsworth MD (04/25/2019 12:57 PM) [place] [id number]
[2019-04-25] MEDS ORDERED: FERR324T14 PO (13:39)
[2019-04-25] MEDS ORDERED: METR500T PO (14:02)
[2019-04-26 17:13] LABS: GC PROBE Negative (Negative)
== END 2019-04-25 14:10 | disposition home or self-care (01) ==
LOC: ER 10:29
DX: K57.90 Diverticulosis of intestine, part unspecified, without perforation or abscess without bleeding (principal); D64.9 Anemia, unspecified; R42 Dizziness and giddiness; I10 Essential (primary) hypertension; Z90.49 Acquired absence of other specified parts of digestive tract
CPT/HCPCS: 36415; 74177; 80053; 80307; 81001; 81025; 82550; 83690; 85025; 87491; 87591; 96361; 96374; 96375; 99285; G0480; J2270; J3490; J7030; Q0111; Q9967